=== PATIENT | female | born 1950 | race Asian ===

== ENCOUNTER 2018-05-24 10:44 | Inpatient (IN) | payer OTHER | END 2018-06-12 10:22 | disposition still patient (30) | LOC: PAVB 10:44 | PROVIDERS: ADMIT Internal Medicine ==

== ENCOUNTER 2018-05-25 06:21 | Outpatient (CLI) | payer OTHER ==
[2018-05-25 06:40] LABS: PLATELET COUNT 311 K/uL (152-353)
[2018-05-25 06:53] LABS: POTASSIUM 4.4 mmol/L (3.6-5.2)
== END 2018-05-25 19:56 | disposition home or self-care (01) ==
LOC: LAB 06:21
PROVIDERS: Internal Medicine
DX: I10 Essential (primary) hypertension (principal); E55.9 Vitamin D deficiency, unspecified; Z16.24 Resistance to multiple antibiotics
CPT/HCPCS: 80053; 82306; 85027; 87081

== ENCOUNTER 2018-06-01 16:18 | Outpatient (CLI) | payer OTHER | END 2018-06-01 22:09 | disposition home or self-care (01) | LOC: RAD 16:18 | DX: Z11.1 Encounter for screening for respiratory tuberculosis (principal); R76.11 Nonspecific reaction to tuberculin skin test without active tuberculosis ==

== ENCOUNTER 2018-06-12 10:36 | Inpatient (IN) | payer OTHER | END 2018-07-12 09:38 | disposition still patient (30) | LOC: PAVB 10:36 | PROVIDERS: ADMIT Internal Medicine ==

== ENCOUNTER 2018-07-12 12:26 | Inpatient (IN) | payer OTHER | END 2018-08-12 08:51 | disposition still patient (30) | LOC: PAVB 12:26 | PROVIDERS: ADMIT Internal Medicine ==

== ENCOUNTER 2018-08-12 09:21 | Inpatient (IN) | payer OTHER | END 2018-09-11 08:36 | disposition still patient (30) | LOC: PAVB 09:21 | PROVIDERS: ADMIT Internal Medicine ==

== ENCOUNTER 2018-09-11 08:52 | Inpatient (IN) | payer OTHER | END 2018-10-12 11:08 | disposition still patient (30) | LOC: PAVB 08:52 | PROVIDERS: ADMIT Internal Medicine ==

== ENCOUNTER 2018-10-12 11:47 | Inpatient (IN) | payer OTHER | END 2018-11-12 13:46 | disposition still patient (30) | LOC: PAVB 11:47 | PROVIDERS: ADMIT Internal Medicine ==

== ENCOUNTER 2018-11-12 14:02 | Inpatient (IN) | payer OTHER | END 2018-12-10 11:43 | disposition still patient (30) | LOC: PAVB 14:02 | PROVIDERS: ADMIT Internal Medicine ==

== ENCOUNTER 2018-11-18 05:57 | Outpatient (CLI) | payer OTHER ==
[2018-11-18 06:48] LABS: POTASSIUM 3.9 mmol/L (3.6-5.2)
[2018-11-18 10:22] LABS: PLATELET COUNT 331 K/uL (152-353)
== END 2018-11-18 22:19 | disposition home or self-care (01) ==
LOC: LAB 05:57
PROVIDERS: Internal Medicine
DX: I10 Essential (primary) hypertension (principal); E55.9 Vitamin D deficiency, unspecified
CPT/HCPCS: 80053; 82306; 85027

== ENCOUNTER 2018-12-06 11:32 | Outpatient (CLI) | payer OTHER | END 2018-12-06 20:02 | disposition home or self-care (01) | LOC: RAD 11:32 | DX: K63.89 Other specified diseases of intestine (principal) ==

== ENCOUNTER 2018-12-10 12:03 | Inpatient (IN) | payer OTHER | END 2019-01-10 11:37 | disposition still patient (30) | LOC: PAVB 12:03 | PROVIDERS: ADMIT Internal Medicine ==

== ENCOUNTER 2019-01-10 11:53 | Inpatient (IN) | payer OTHER | END 2019-02-09 12:45 | disposition still patient (30) | LOC: PAVB 11:53 | PROVIDERS: ADMIT Internal Medicine ==

== ENCOUNTER 2019-02-09 13:36 | Inpatient (IN) | payer OTHER | END 2019-03-12 08:37 | disposition still patient (30) | LOC: PAVB 13:36 | PROVIDERS: ADMIT Internal Medicine | DX: Z51.89 Encounter for other specified aftercare (principal) ==

== ENCOUNTER 2019-03-12 09:13 | Inpatient (IN) | payer OTHER | END 2019-04-11 09:36 | disposition still patient (30) | LOC: PAVB 09:13 | PROVIDERS: ADMIT Internal Medicine ==

== ENCOUNTER 2019-04-06 13:16 | Outpatient (CLI) | payer OTHER | END 2019-04-06 23:30 | disposition home or self-care (01) | LOC: RESP 13:16 | DX: J44.9 Chronic obstructive pulmonary disease, unspecified (principal); R06.02 Shortness of breath; R05 Cough ==

== ENCOUNTER 2019-04-11 10:48 | Inpatient (IN) | payer OTHER | END 2019-05-12 10:34 | disposition still patient (30) | LOC: PAVB 10:48 | PROVIDERS: ADMIT Internal Medicine ==

== ENCOUNTER 2019-05-12 11:08 | Inpatient (IN) | payer OTHER | END 2019-06-12 16:25 | disposition still patient (30) | LOC: PAVB 11:08 | PROVIDERS: ADMIT Internal Medicine ==

== ENCOUNTER 2019-05-19 07:11 | Outpatient (CLI) | payer OTHER ==
[2019-05-19 07:58] LABS: PLATELET COUNT 283 K/uL (152-353)
[2019-05-19 08:13] LABS: POTASSIUM 3.7 mmol/L (3.6-5.2)
== END 2019-05-19 23:47 | disposition home or self-care (01) ==
LOC: LAB 07:11
PROVIDERS: Internal Medicine
DX: G62.89 Other specified polyneuropathies (principal); I10 Essential (primary) hypertension; G30.0 Alzheimer's disease with early onset
CPT/HCPCS: 80053; 82306; 85027

== ENCOUNTER 2019-06-12 17:01 | Inpatient (IN) | payer OTHER | END 2019-07-12 09:20 | disposition still patient (30) | LOC: PAVB 17:01 | PROVIDERS: ADMIT Internal Medicine ==

== ENCOUNTER 2019-07-04 03:12 | Outpatient (CLI) | payer OTHER | END 2019-07-04 23:13 | disposition home or self-care (01) | LOC: LAB 03:12 | DX: Z93.3 Colostomy status (principal) | CPT/HCPCS: 87070; 87077; 87186; 87205 ==

== ENCOUNTER 2019-07-12 10:17 | Inpatient (IN) | payer OTHER | END 2019-08-12 11:08 | disposition still patient (30) | LOC: PAVB 10:17 | PROVIDERS: ADMIT Internal Medicine ==

== ENCOUNTER 2019-07-19 02:07 | Emergency (ER) | payer OTHER ==
[~2019-07-19] VITALS: Ht 167.6 cm; Wt 94.3 kg
[2019-07-19 03:50] VITALS: BP 118/82; TEMP 98.5
== END 2019-07-19 03:00 | disposition home or self-care (01) ==
LOC: ED 02:07
DX: S33.5XXA Sprain of ligaments of lumbar spine, initial encounter (principal); N39.0 Urinary tract infection, site not specified
CPT/HCPCS: 81000; 96374; 99284; J1885

== ENCOUNTER 2019-07-26 14:25 | Outpatient (CLI) | payer OTHER | END 2019-07-26 19:24 | disposition home or self-care (01) | LOC: US 14:25 | DX: M79.605 Pain in left leg (principal); M79.604 Pain in right leg ==

== ENCOUNTER 2019-08-12 11:29 | Inpatient (IN) | payer OTHER | END 2019-09-11 08:00 | disposition still patient (30) | LOC: PAVB 11:29 | PROVIDERS: ADMIT Internal Medicine ==

== ENCOUNTER 2019-09-11 10:10 | Inpatient (IN) | payer OTHER | END 2019-10-12 08:34 | disposition still patient (30) | LOC: PAVB 10:10 | PROVIDERS: ADMIT Internal Medicine ==

== ENCOUNTER 2019-10-12 08:46 | Inpatient (IN) | payer OTHER | END 2019-11-12 09:55 | disposition still patient (30) | LOC: PAVB 08:46 | PROVIDERS: ADMIT Internal Medicine ==

== ENCOUNTER 2019-11-12 10:29 | Inpatient (IN) | payer OTHER | END 2019-12-11 13:14 | disposition still patient (30) | LOC: PAVB 10:29 | PROVIDERS: ADMIT Internal Medicine ==

== ENCOUNTER 2019-11-28 04:01 | Outpatient (CLI) | payer OTHER ==
[2019-11-28 05:57] LABS: PLATELET COUNT 263 K/uL (152-353)
== END 2019-11-28 21:32 | disposition home or self-care (01) ==
LOC: LAB 04:01
PROVIDERS: Internal Medicine
DX: I10 Essential (primary) hypertension (principal); E55.9 Vitamin D deficiency, unspecified; J44.9 Chronic obstructive pulmonary disease, unspecified
CPT/HCPCS: 80053; 82306; 85027

== ENCOUNTER 2019-12-11 13:54 | Inpatient (IN) | payer OTHER | END 2020-01-11 09:40 | disposition still patient (30) | LOC: PAVB 13:54 | PROVIDERS: ADMIT Internal Medicine ==

== ENCOUNTER 2020-01-11 10:13 | Inpatient (IN) | payer OTHER | END 2020-02-10 09:01 | disposition still patient (30) | LOC: PAVB 10:13 | PROVIDERS: ADMIT Internal Medicine ==

== ENCOUNTER 2020-02-10 09:47 | Inpatient (IN) | payer OTHER | END 2020-03-12 09:10 | disposition still patient (30) | LOC: PAVB 09:47 | PROVIDERS: ADMIT Internal Medicine | CPT/HCPCS: 87635; U0002 ==

== ENCOUNTER 2020-03-12 09:53 | Inpatient (IN) | payer OTHER | END 2020-03-16 13:07 | disposition home or self-care (01) | LOC: PAVB 09:53 | PROVIDERS: ADMIT Internal Medicine | CPT/HCPCS: 87635; U0002 ==

== ENCOUNTER 2020-03-23 04:39 | Emergency (ER) | payer OTHER ==
[~2020-03-23] VITALS: Ht 167.6 cm; Wt 94.3 kg
[2020-03-23 04:39] VITALS: TEMP 98.3
[2020-03-23 05:18] LABS: PLATELET COUNT 378 K/uL (152-353)
[2020-03-23 05:26] VITALS: BP 149/92
[2020-03-23 05:35] LABS: POTASSIUM 3.2 mmol/L (3.6-5.2); SODIUM 141 mmol/L (136-145)
== END 2020-03-23 08:04 | disposition home or self-care (01) ==
LOC: ED 04:39
PROC: 0T9B70Z Drainage of Bladder with Drainage Device, Via Natural or Artificial Opening (ICD-10-PCS; principal; 2020-03-23)
DX: M54.5 Low back pain (principal); R06.09 Other forms of dyspnea
CPT/HCPCS: 51702; 80053; 81000; 83735; 83880; 84443; 84484; 85027; 93005; 94664; 96374; 99284; J1940

== ENCOUNTER 2020-03-31 18:24 | Emergency (ER) | payer OTHER ==
[~2020-03-31] VITALS: Ht 167.6 cm; Wt 94.3 kg
[2020-03-31 18:24] VITALS: TEMP 98.7
[2020-03-31 19:20] LABS: PLATELET COUNT 379 K/uL (152-353)
[2020-03-31 19:32] LABS: POTASSIUM 4.3 mmol/L (3.6-5.2); SODIUM 141 mmol/L (136-145)
[2020-03-31 21:30] VITALS: BP 124/85
== END 2020-03-31 21:30 | disposition home or self-care (01) ==
LOC: ED 18:24
PROVIDERS: Emergency Medicine Emergency Medical Services
DX: R60.0 Localized edema (principal)
CPT/HCPCS: 80053; 81000; 83880; 84484; 85027; 96374; 96375; 99284; J1940

== ENCOUNTER 2020-04-10 15:39 | Outpatient (CLI) | payer OTHER ==
[2020-04-10 17:24] LABS: POTASSIUM 3.4 mmol/L (3.6-5.2)
[2020-04-10 17:49] LABS: PLATELET COUNT 355 K/uL (152-353)
== END 2020-04-10 20:40 | disposition home or self-care (01) ==
LOC: LAB 15:39
PROVIDERS: Nurse Practitioner Family
DX: Z00.00 Encounter for general adult medical examination without abnormal findings (principal); G30.8 Other Alzheimer's disease; J44.9 Chronic obstructive pulmonary disease, unspecified; I10 Essential (primary) hypertension; G62.89 Other specified polyneuropathies; E55.9 Vitamin D deficiency, unspecified; J44.1 Chronic obstructive pulmonary disease with (acute) exacerbation; Z79.899 Other long term (current) drug therapy; R60.0 Localized edema
CPT/HCPCS: 80053; 80061; 82306; 83036; 84439; 84443; 84481; 85027; 86141

== ENCOUNTER 2020-05-18 10:20 | Emergency (ER) | payer OTHER ==
[~2020-05-18] VITALS: Ht 167.6 cm; Wt 70.3 kg
[2020-05-18 11:38] VITALS: BP 134/87; TEMP 98
== END 2020-05-18 11:38 | disposition home or self-care (01) ==
LOC: ED 10:20
DX: K08.89 Other specified disorders of teeth and supporting structures (principal); K02.9 Dental caries, unspecified; F17.210 Nicotine dependence, cigarettes, uncomplicated
CPT/HCPCS: 99282

== ENCOUNTER 2020-06-04 09:35 | Emergency (ER) | payer OTHER ==
[~2020-06-04] VITALS: Ht 167.6 cm; Wt 90.7 kg
[2020-06-04 10:22] VITALS: BP 91/56; TEMP 98.7
== END 2020-06-04 10:22 | disposition home or self-care (01) ==
LOC: ED 09:35
DX: B35.4 Tinea corporis (principal); L89.329 Pressure ulcer of left buttock, unspecified stage; L89.319 Pressure ulcer of right buttock, unspecified stage
CPT/HCPCS: 99282